=== PATIENT | female | born 1965 | race American Indian/Alaskan Native ===

== ENCOUNTER 2016-04-02 14:53 | Outpatient (CLI) | payer BC ==
--- NOTE | 2016-04-03 13:45 | Ultrasound Report ---
RIGHT BREAST ULTRASOUND: 04/02/16 14:53:00 CLINICAL: Six month followup of a mass at 9 o'clock. COMPARISON: 05/24/15 FINDINGS: Ultrasound of the outer right breast was performed and demonstrated a stable solid hypoechoic smooth oval mass at 9 o'clock 7 cm from the nipple. It measures 1.1 x 0.5 x 0.9 cm and is unchanged compared to the previous exams. Ultrasound of the right axilla demonstrated a single lymph node with central fat and benign morphology measuring 1.5 cm. IMPRESSION: Stable benign 1.1 cm right breast mass at 9 o'clock. BI-RADS 2 - - Benign RECOMMENDATION: Routine mammographic screening.
== END 2016-04-02 14:54 | disposition home or self-care (01) ==
LOC: SPVWC 14:53
PROVIDERS: ATTEND Obstetrics & Gynecology
DX: N63 Unspecified lump in breast (principal)

== ENCOUNTER 2016-07-25 09:14 | Outpatient (CLI) | payer BC ==
--- NOTE | 2016-07-25 14:06 | Mammography Report ---
BILATERAL DIGITAL SCREENING MAMMOGRAM with CAD : 07/25/16 09:14:00 CLINICAL: Routine screening. COMPARISON:09/23/15 FINDINGS: The breasts are heterogeneously dense, which may obscure small masses. No mass, architectural distortion or suspicious calcifications. IMPRESSION: No mammographic evidence of malignancy. BI-RADS CATEGORY: 2 -- Benign RECOMMENDATION: Routine mammographic screening in one year. COMMENT: Patient follow-up letters are generated by our [employer] application.
== END 2016-07-25 09:15 | disposition home or self-care (01) ==
LOC: SPVWC 09:14
PROVIDERS: ATTEND Obstetrics & Gynecology
DX: Z12.31 Encounter for screening mammogram for malignant neoplasm of breast (principal)
CPT/HCPCS: 77067; G0202

== ENCOUNTER 2017-07-29 16:07 | Outpatient (CLI) | payer BC ==
--- NOTE | 2017-07-30 09:58 | Mammography Report ---
BILATERAL DIGITAL SCREENING MAMMOGRAM with CAD : 07/29/17 16:07:00 CLINICAL: Routine screening. COMPARISON:07/25/16 and mammograms and right breast ultrasounds going back to 08/10/13 FINDINGS: The breasts are heterogeneously dense, which may obscure small masses.A right outer smooth oval masses stable compared to prior exams. No new mass, architectural distortion or suspicious calcifications. IMPRESSION: No mammographic evidence of malignancy. BI-RADS CATEGORY: 2 -- Benign RECOMMENDATION: Routine mammographic screening in one year. COMMENT: Patient follow-up letters are generated by our [employer] application.
== END 2017-07-29 16:08 | disposition home or self-care (01) ==
LOC: SPVWC 16:07
PROVIDERS: ATTEND Obstetrics & Gynecology
DX: Z12.31 Encounter for screening mammogram for malignant neoplasm of breast (principal)
CPT/HCPCS: 77067

== ENCOUNTER 2018-07-30 16:00 | Outpatient (CLI) | payer BC ==
--- NOTE | 2018-07-31 08:31 | Mammography Report ---
BILATERAL MAMMOGRAM: FINDINGS: The breast tissue is heterogeneously dense, which could obscure detection of small masses (approximately 50%-75% glandular). No mass, distortion, suspicious calcification, or skin change is seen. No interval changes when compared to exams dating back to July 2016. CAD was utilized. IMPRESSION: Negative mammogram. There is no mammographic evidence of malignancy. RECOMMENDATION: Follow-up per ACS guidelines. BI-RADS CATEGORY: 1 = Negative ACR BI-RADS MAMMOGRAPHIC CODES: 0 = Needs additional imaging evaluation; 1 = Negative; 2 = Benign; 3 = Probably benign; 4 = Suspicious; 5 = Malignant; 6 = Known biopsy-proven malignancy COMMENT: 1. Dense breast tissue, i.e., adenosis, fibrocystic changes, etc., may obscure an underlying neoplasm. 2. Approximately 10% of cancers are not detected with mammography. 3. A negative mammography report should not delay biopsy if a clinically suspicious mass is present. COMMENT: Patient follow-up letters are generated in [employer].
== END 2018-07-30 16:01 | disposition home or self-care (01) ==
LOC: SPVWC 16:00
PROVIDERS: ATTEND Obstetrics & Gynecology
DX: Z12.31 Encounter for screening mammogram for malignant neoplasm of breast (principal)
CPT/HCPCS: 77067

== ENCOUNTER 2019-08-20 15:57 | Outpatient (CLI) | payer BC | END 2019-08-20 15:58 | disposition home or self-care (01) | LOC: SPVWC 15:57 | PROVIDERS: ATTEND Obstetrics & Gynecology | DX: Z12.31 Encounter for screening mammogram for malignant neoplasm of breast (principal); N64.89 Other specified disorders of breast | CPT/HCPCS: 77067 ==

== ENCOUNTER 2020-08-22 15:52 | Outpatient (CLI) | payer BC ==
--- NOTE | 2020-08-23 12:17 | Mammography Report ---
DIGITAL SCREENING MAMMOGRAM WITH CAD, 08/23/2020 CLINICAL INFORMATION / INDICATION: Routine screening mammography. SCREENING MAMMO Z12.31 TECHNIQUE: Digital bilateral 2D mammography was obtained in the craniocaudal and mediolateral obliqu e projections. This examination was interpreted with the benefit of Computer-Aided Detection analysis . COMPARISON: 08/20/2019 FINDINGS: Breast Density: There are scattered areas of fibroglandular density. No dominant mass, suspicious calcifications, or architectural distortion in either breast. Stable nodular densities primarily in the right breast. IMPRESSION: No mammographic evidence of malignancy. Follow up recommendation: Routine yearly BI-RADS Category 2: Benign. A "normal" or negative report should not discourage follow up or biopsy of a clinically significant f inding. A written summary of these findings will be mailed to the patient. The patient will be entered into a mammography reporting system which will generate a reminder letter for the patient's next appointmen t at the appropriate interval. The [employer] recommends yearly mammograms starting at age 40 and continuing as l adi as a woman is in good health. Breast MRI is recommended for women with an approximate 20-25% or greater lifetime risk of breast cancer, including women with a strong family history of breast or ova louie cancer or who have been treated for Hodgkin's disease. Signer Name: Sean Mckeon MD Signed: 08/23/2020 12:12 PM Workstation Name: [id number]
== END 2020-08-22 15:53 | disposition home or self-care (01) ==
LOC: SPVWC 15:52
PROVIDERS: ATTEND Obstetrics & Gynecology
DX: Z12.31 Encounter for screening mammogram for malignant neoplasm of breast (principal); N64.89 Other specified disorders of breast
CPT/HCPCS: 77067

== ENCOUNTER 2021-08-30 10:55 | Outpatient (CLI) | payer BC ==
--- NOTE | 2021-09-01 11:18 | Mammography Report ---
DIGITAL SCREENING MAMMOGRAM WITH CAD, 08/30/2021 CLINICAL INFORMATION / INDICATION: Routine screening mammography. TECHNIQUE: Digital bilateral 2D mammography was obtained in the craniocaudal and mediolateral obliqu e projections. This examination was interpreted with the benefit of Computer-Aided Detection analysis . COMPARISON: 08/22/2020, 08/20/2019, 07/30/2018 FINDINGS: Breast Density: There are scattered areas of fibroglandular density. No dominant mass, suspicious calcifications, or architectural distortion in either breast. There has been no significant interval change. IMPRESSION: No mammographic evidence of malignancy. Follow up recommendation: Routine yearly screening mammogram. BI-RADS Category 1: NEGATIVE A "normal" or negative report should not discourage follow up or biopsy of a clinically significant f inding. A written summary of these findings will be mailed to the patient. The patient will be entered into a mammography reporting system which will generate a reminder letter for the patient's next appointmen t at the appropriate interval. The [employer] recommends yearly mammograms starting at age 40 and continuing as l adi as a woman is in good health. Breast MRI is recommended for women with an approximate 20-25% or greater lifetime risk of breast cancer, including women with a strong family history of breast or ova louie cancer or who have been treated for Hodgkin's disease. Signer Name: Yenifer Castillo MD Signed: 09/01/2021 11:14 AM Workstation Name: [id number]
== END 2021-08-30 10:56 | disposition home or self-care (01) ==
LOC: SPVWC 10:55
PROVIDERS: ATTEND Obstetrics & Gynecology
DX: Z12.31 Encounter for screening mammogram for malignant neoplasm of breast (principal)
CPT/HCPCS: 77067